=== PATIENT | male | born 1945 | race Caucasian/White ===

== ENCOUNTER 2017-12-09 08:37 | Day surgery (SDC) | payer MEDICARE, MEDICAID ==
[~2017-12-09] VITALS: Ht 177.8 cm; Wt 76.9 kg
[~2017-12-09 08:37] MED LIST: LIDOcaine 1%/PF (10mg/ml) 5ml vial IJ ONE
== END 2017-12-09 11:30 | disposition home or self-care (01) ==
LOC: SSTAY O 08:37
PROVIDERS: ATTEND Radiology Diagnostic Radiology
DX: R22.1 Localized swelling, mass and lump, neck (principal); E78.00 Pure hypercholesterolemia, unspecified; Z98.890 Other specified postprocedural states; Z79.899 Other long term (current) drug therapy; Z85.810 Personal history of malignant neoplasm of tongue; Z85.818 Personal history of malignant neoplasm of other sites of lip, oral cavity, and pharynx; Z53.8 Procedure and treatment not carried out for other reasons
CPT/HCPCS: 38505; 76942